=== PATIENT | male | born 1950 | race Caucasian/White ===

== ENCOUNTER 2019-12-18 00:18 | Outpatient (CLI) | payer MEDICARE, OTHER, SELFPAY ==
[2019-12-18 18:39] LABS: SARS-CoV-2 RNA PCR Negative
== END 2019-12-18 00:19 | disposition home or self-care (01) ==
LOC: ANHCOVIDDT 00:18
PROVIDERS: PCP Family Medicine; Visit Provider Internal Medicine Gastroenterology
DX: Z01.812 Encounter for preprocedural laboratory examination (principal); Z20.828 Contact with and (suspected) exposure to other viral communicable diseases
CPT/HCPCS: 87635; C9803; U0003

== ENCOUNTER 2019-12-20 01:07 | Day surgery (SDC) | payer MEDICARE, OTHER, SELFPAY ==
[2019-12-14 11:29] VITALS: BMI 24.5
[2019-12-20 06:36] VITALS: BP 113/75; PULSE 75; RESP 14; TEMP 36.6; O2SAT 99
[2019-12-20] MEDS: LACTATED RINGERS 1,000 ML 150 ML IV CONT (06:49)
--- NOTE | 2019-12-20 07:16 | WPDANESEPPF ---
Anes - Initial Pre Proc Eval Procedure: Operation Date: 12/20/19 07:30 Proposed Procedures p Screening Colonoscopy - Tanner Burgess DO Date/Time: 12/20/19 07:16 Surgeon: Tanner Burgess DO Pre Op Diagnosis: Neoplasm Screening Patient Data Age: 69 Gender: M Height: 5 ft 11 in Weight: 80.6 kg Last Vital Signs Temp 97.8 F 12/20/19 06:36 Pulse 75 12/20/19 06:36 Resp 14 12/20/19 06:36 BP 113/75 12/20/19 06:36 Pulse Ox 99 12/20/19 06:36 Allergies Allergy/AdvReac Type Severity Reaction Status Date / Time No Known Allergies Verified 12/20/19 06:35 Home Medications Medication Instructions Recorded Confirmed Type clopidogrel 75 mg tablet 75 mg PO DAILY #90 tablet 08/06/19 12/20/19 Rx fluticasone propionate 50 2 spray NASAL DAILY PRN 08/06/19 12/14/19 History mcg/actuation nasal spray,suspension simvastatin 40 mg tablet 40 mg PO QPM #90 tablet 08/06/19 12/14/19 Rx lisinopril 10 mg tablet 10 mg PO DAILY #90 tablet 10/15/19 12/20/19 Rx Cbd Oil 1 drp/day PO DAILY 12/14/19 12/14/19 History aspirin [Aspir-81] 81 mg PO DAILY 12/14/19 12/14/19 History dshhuvjz-rkr-tpqxtpj fumarate 9 mg PO DAILY 12/14/19 12/14/19 History [Multi Vitamin] psyllium husk [Metamucil] 0.4 g PO DAILY 12/14/19 12/14/19 History Patient hx anesthesia problems: none Family hx anesthesia problems: none PMFSH Past Medical History Medical History (Updated 08/18/19 @ 09:00 by Lily Beard MD) CVD (cardiovascular disease) History of prostate cancer HTN (hypertension) Hyperlipemia Stroke Surgical History Surgical History H/O prostatectomy History of hernia repair History of tonsillectomy Social History Social History Smoking status: Never smoker Second hand tobacco smoke exposure: No Alcohol intake: current Substance use: never Substance use type: does not use Gender identity (if verbalized by the patient): Male Anes - Eval Final PreProcedure Day of Procedure 12/20/19 07:16 Patient weight: overweight Heart: regular rate and rhythm Lungs: clear to auscultation Airway: Mallampati scale class II Neurological: alert and oriented Last oral intake: >/= 8 hours ASA classification: III Emergent: no Anesthetic plan: proceed Anesthesia type and monitoring: general GIVS and standard monitoring Informed Consent: The patient's anesthetic plan and its attendant risks and benefits were discussed with the patient/family/POA. Questions were solicited and answers provided to the satisfaction of the patient/family/POA.
--- NOTE | 2019-12-20 07:33 | PM.IMHP ---
H&P: HPI History of Present Illness Chief complaint: Neoplasm Screening Narrative: Enrique Del Rosario is a 69 year old male This is here for colonoscopy. He has had 3 quest the patient's primary. Impression: Positive stool in DNA test. History of colon polyps. HLD. HTN. Prostate cancer. TIA. recommendation: Colonoscopy. History: Very pleasant gentleman is here for screening and surveillance colonoscopy. He has a family history of colon cancer. He has a personal history of colon polyps. General: very pleasant patient in no acute distress. HEENT: Head was normocephalic sclerae is clear mouth without masses neck was supple. Heart: Rate rhythm regular without S3 or S4. Lungs: CTA. Abdomen: Soft with no guarding or rigidity. Bowel sounds were active. Neurologic: Cranial nerves 2 through 12 intact. No focal defects. No clonus. Musculoskeletal system: Revealed no joint tenderness or swelling no muscle atrophy. Extremities: Reveal no significant edema. Skin: Warm and dry with normal turgor. Mental status: intact. Patient is alert and oriented. Review of Systems Review of Systems: All systems reviewed & are unremarkable except as noted in HPI and below PMFSH Past Medical History Medical History (Updated 08/18/19 @ 09:00 by Lily Beard MD) CVD (cardiovascular disease) History of prostate cancer HTN (hypertension) Hyperlipemia Stroke Surgical History Surgical History H/O prostatectomy History of hernia repair History of tonsillectomy Social History Social History Smoking status: Never smoker Second hand tobacco smoke exposure: No Alcohol intake: current Substance use: never Substance use type: does not use Gender identity (if verbalized by the patient): Male Meds Home Medications and Allergies Home Medications Medication Instructions Recorded Confirmed Type clopidogrel 75 mg tablet 75 mg PO DAILY #90 tablet 08/06/19 12/20/19 Rx fluticasone propionate 50 2 spray NASAL DAILY PRN 08/06/19 12/14/19 History mcg/actuation nasal spray,suspension simvastatin 40 mg tablet 40 mg PO QPM #90 tablet 08/06/19 12/14/19 Rx lisinopril 10 mg tablet 10 mg PO DAILY #90 tablet 10/15/19 12/20/19 Rx Cbd Oil 1 drp/day PO DAILY 12/14/19 12/14/19 History aspirin [Aspir-81] 81 mg PO DAILY 12/14/19 12/14/19 History qohmcujp-gsv-jnapvcq fumarate 9 mg PO DAILY 12/14/19 12/14/19 History [Multi Vitamin] psyllium husk [Metamucil] 0.4 g PO DAILY 12/14/19 12/14/19 History Allergies Allergy/AdvReac Type Severity Reaction Status Date / Time No Known Allergies Verified 12/20/19 06:35 Vital Signs Vital Signs - 24 hr 12/20/19 06:36 Temperature 36.6 C Pulse Rate 75 Respiratory Rate 14 Blood Pressure 113/75 Pulse Oximetry 99
[2019-12-20 07:55] VITALS: BP 104/70; PULSE 64; RESP 16; O2SAT 98
[2019-12-20 08:05] VITALS: BP 99/66; PULSE 60; RESP 18; O2SAT 99
[2019-12-20 08:15] VITALS: BP 116/68; PULSE 64; RESP 20; O2SAT 99
== END 2019-12-20 08:30 | disposition home or self-care (01) ==
PROVIDERS: PCP Family Medicine; Visit Provider Internal Medicine Gastroenterology
PROC: 0DJD8ZZ Inspection of Lower Intestinal Tract, Via Natural or Artificial Opening Endoscopic (ICD-10-PCS; CPT 45378; principal; 2019-12-20 07:30)
DX: Z12.11 Encounter for screening for malignant neoplasm of colon (principal); D12.2 Benign neoplasm of ascending colon; K57.30 Diverticulosis of large intestine without perforation or abscess without bleeding; K64.8 Other hemorrhoids; Z80.0 Family history of malignant neoplasm of digestive organs; I10 Essential (primary) hypertension; I25.10 Atherosclerotic heart disease of native coronary artery without angina pectoris; E78.5 Hyperlipidemia, unspecified; Z86.73 Personal history of transient ischemic attack (TIA), and cerebral infarction without residual deficits; Z85.46 Personal history of malignant neoplasm of prostate; Z79.82 Long term (current) use of aspirin; Z79.02 Long term (current) use of antithrombotics/antiplatelets
CPT/HCPCS: 45385; 88305; J2704; J7120

== ENCOUNTER 2020-03-31 15:05 | Emergency (ER) | payer MEDICARE, OTHER, SELFPAY ==
--- NOTE | ~2020-03-31 | XR_ITS ---
EXAMINATION: XR knee LT min 4V DATE: 03/31/2020 15:56 INDICATION: Left knee injury and pain. TECHNIQUE: 4 views of left knee were obtained. COMPARISON: None. FINDINGS: Bone alignment is normal. There is an avulsion fracture of the superior pole of patella. Th ere is mild tricompartmental osteoarthritis. There is a moderate-sized knee joint effusion. IMPRESSION: 1. Avulsion fracture of the superior pole of patella. 2. Mild left knee osteoarthritis. 3. Moderate-sized left knee joint effusion. Reviewed, dictated and finalized at location A.
--- NOTE | ~2020-03-31 | CT_ITS ---
EXAMINATION: CT brain wo con DATE: 03/31/2020 18:39 INDICATION: Head injury. TECHNIQUE: Computed tomography (CT) of the head was performed without intravenous contrast. The mA wa s adjusted according to patient size. Iterative reconstruction technique was employed. The dose-lengt h product was 605.33 mGy-cm. COMPARISON: Head CT 05/06/2015 FINDINGS: There is no intracranial hemorrhage, acute infarction, or abnormal intracranial mass lesion . There is an old lacunar infarct in left thalamus. The ventricles are normal in size. There is mild mucosal thickening in the paranasal sinuses. The orbits are normal. The mastoid air cells are normal. IMPRESSION: 1. Old lacunar infarct in left thalamus. Reviewed, dictated and finalized at location A.
[2020-03-31 15:16] VITALS: BP 126/62; PULSE 67; RESP 20; TEMP 36.8; O2SAT 98
[2020-03-31 17:35] VITALS: BP 154/89; PULSE 82; RESP 18; O2SAT 100
--- NOTE | 2020-03-31 18:24 | ED.GENADULT ---
HPI - General Adult General Chief complaint: Extremity Injury, Lower Stated complaint: fall/knee injury Time Seen by Provider: 03/31/20 17:57 Source: patient History of Present Illness HPI narrative: Patient is a 69 y/o male complaining knee pain after a fall. He states that he fell off a ladder about 3-4 hours ago. He fell from a height of approximately 3 feet. He states the his pain is mild with no radiation. Pain is worse with movement. He is not able to fully extend his knee. He is not able to ambulate. He does not think he hit his head, but does have a small abrasion to his head. He has no neck pain, back pain, chest pain or abdominal pain. Related Data Home Medications Medication Instructions Recorded Confirmed fluticasone propionate 50 2 spray NASAL DAILY PRN 08/06/19 12/14/19 mcg/actuation nasal spray,suspension Cbd Oil 1 drp/day PO DAILY 12/14/19 12/14/19 aspirin [Aspir-81] 81 mg PO DAILY 12/14/19 12/14/19 qvvaipfa-nmr-lspztwc fumarate 9 mg PO DAILY 12/14/19 12/14/19 [Multi Vitamin] psyllium husk [Metamucil] 0.4 g PO DAILY 12/14/19 12/14/19 Allergies Allergy/AdvReac Type Severity Reaction Status Date / Time No Known Allergies Verified 12/20/19 06:35 Review of Systems Constitutional: Constitutional: Denies chills, Denies fever(s), Denies headache(s) and Denies weakness Eyes: Eyes: Denies blurry vision ENT: Denies headache(s) and Denies neck pain Cardiovascular: Cardiovascular: Denies chest pain and Denies dyspnea Respiratory: Respiratory: Denies cough and Denies dyspnea Gastrointestinal: Gastrointestinal: Denies abdominal pain, Denies diarrhea, Denies nausea and Denies vomiting Genitourinary: Genitourinary: Denies hematuria and Denies dysuria Musculoskeletal: Musculoskeletal: Denies back pain, Reports arthralgias (left knee pain) and Denies neck pain Neurologic: Denies headache(s) and Denies weakness PMF Past Medical History Medical History CVD (cardiovascular disease) History of prostate cancer HTN (hypertension) Hyperlipemia Stroke Surgical History Surgical History H/O prostatectomy History of hernia repair History of tonsillectomy Social History Social History Smoking status: Never smoker Second hand tobacco smoke exposure: No Alcohol intake: current Substance use: never Substance use type: does not use Gender identity (if verbalized by the patient): Male Exam Const: General: no acute distress and well developed Orientation/consciousness: oriented to person, oriented to place, oriented to time and patient oriented x3 HENMT: Head: normocephalic Ears: external ears normal General nose exam: Normal external nose present Eyes: General: appearance normal, both eyes and all related structures Conjunctivae: conjunctivae normal Neck: Neck: normal visual inspection and full ROM Chest: Chest palpation & inspection: normal inspection of the chest and no tenderness Resp: Effort & Inspection: normal respiratory effort Auscultation: clear to auscultation bilaterally Cardio: Rate: regular rate Rhythm: regular rhythm GI: GI Palp: No abdominal tenderness and Yes Soft to palpation Skin: General skin exam: normal color and turgor normal Neuro: General: oriented to person, oriented to place, oriented to time and patient oriented x3 Cognition (Neuro): normal cognition Extrem: General: normal to inspection, full ROM and no pedal edema Left lower extremity: knee Details: abnormal ROM (unable to fully extend left knee), knee ligament exam abnormal and other (palpable defect above patella consistent with quad tendon rupture) Psych: Appearance: grossly normal Mental Status: mental status grossly normal Affect: normal affect Course Consultations Consultation #1: Discussed with Dr. De Souza, who recommends knee i
[2020-03-31] MEDS: TETANUS,DIPHTHERIA,AC PERTUSSIS ADULT (0.5 ML) BOOSTRIX IM (18:47)
== END 2020-03-31 19:32 | disposition home or self-care (01) ==
PROVIDERS: Emergency Provider Emergency Medicine; PCP Family Medicine
DX: S76.112A Strain of left quadriceps muscle, fascia and tendon, initial encounter (principal); W11.XXXA Fall on and from ladder, initial encounter; S00.91XA Abrasion of unspecified part of head, initial encounter; Z23 Encounter for immunization; Z79.82 Long term (current) use of aspirin; I10 Essential (primary) hypertension; E78.5 Hyperlipidemia, unspecified; Z86.73 Personal history of transient ischemic attack (TIA), and cerebral infarction without residual deficits; Z85.46 Personal history of malignant neoplasm of prostate; Z90.79 Acquired absence of other genital organ(s)
CPT/HCPCS: 70450; 73564; 90471; 90715; 99284

== ENCOUNTER 2020-04-08 00:25 | Outpatient (CLI) | payer MEDICARE, OTHER, SELFPAY ==
[2020-04-08 20:04] LABS: SARS-CoV-2 RNA PCR Negative
== END 2020-04-08 00:26 | disposition home or self-care (01) ==
LOC: ANHCOVIDDT 00:25
PROVIDERS: PCP Family Medicine; Visit Provider Orthopaedic Surgery
DX: Z01.812 Encounter for preprocedural laboratory examination (principal); Z20.828 Contact with and (suspected) exposure to other viral communicable diseases
CPT/HCPCS: 87635; C9803; U0003

== ENCOUNTER 2020-04-08 07:45 | Outpatient (CLI) | payer MEDICARE, OTHER, SELFPAY ==
--- NOTE | 2020-04-08 07:48 | ECG_ITS ---
Measurements Intervals [place] Rate: 77 P: -11 UT: 157 QRS: 6 QRSD: 86 T: 19 QT: 353 QTc: 401 Interpretive Statements SINUS RHYTHM DELAYED PRECORDIAL R/S TRANSITION BASELINE ARTIFACT- I, II, AVR, AVL, V4 BORDERLINE ECG Electronically Signed On 04-08-2020 8:04:55 CDT by Christophe Leggett D.O.
== END 2020-04-08 07:46 | disposition home or self-care (01) ==
LOC: ANHSURGERY 07:48
PROVIDERS: PCP Family Medicine; Visit Provider Orthopaedic Surgery
DX: Z01.810 Encounter for preprocedural cardiovascular examination (principal); I10 Essential (primary) hypertension; R94.31 Abnormal electrocardiogram [ECG] [EKG]
CPT/HCPCS: 87635; 93005; C9803; U0003

== ENCOUNTER 2020-04-09 06:38 | Outpatient (CLI) | payer MEDICARE, OTHER, SELFPAY ==
--- NOTE | ~2020-04-09 | MR_ITS ---
EXAMINATION: MR knee LT wo con DATE: 04/09/2020 08:10 INDICATION: Left knee pain. TECHNIQUE: Magnetic resonance imaging (MRI) of the left knee was performed without intravenous contra st. Sequences included axial PD-weighted FS FSE, coronal PD-weighted FSE and PD-weighted FS FSE, sagi ttal PD-weighted FSE, and sagittal T2-weighted FS FSE. COMPARISON: Left knee radiographs 03/31/2020 FINDINGS: Medial compartment: Medial meniscus is normal. There is cartilage surface irregularity of tibial condyle. There is deep p artial thickness cartilage loss of femoral condyle involving the central articular surface. There are tiny marginal osteophytes. Lateral compartment: Lateral meniscus is normal. There is shallow partial-thickness cartilage loss of tibial condyle, wors t at the central articular surface. There is cartilage surface irregularity of femoral condyle. There are tiny marginal osteophytes. Patellofemoral compartment: There is deep partial thickness cartilage loss of patellar medial facet and median ridge with mild castaneda bchondral edema-like marrow signal intensity. There is shallow partial-thickness [employer] loss of cent ral and medial trochlea. Ligaments and tendons: The anterior and posterior cruciate ligaments are normal. The medial collateral ligament is normal. T here are changes of prior sprain of fibular collateral ligament characterized by thickening and incre ased signal intensity proximally. There is a complete tear of quadriceps tendon distally. Fluid: There is a small knee joint effusion. There is moderate prepatellar and superficial infrapatellar bur sitis. There is trace fluid in a Beard's cyst. There is subcutaneous edema about the knee. IMPRESSION: 1. Complete tear of distal quadriceps tendon. 2. Moderate chondrosis of medial and patellofemoral compartments and mild chondrosis of lateral juan rtment. 3. Small knee joint effusion in continuity with moderate prepatellar and superficial infrapatellar bu rsitis. Reviewed, dictated and finalized at location A. IMPRESSION: 1. Complete tear of distal quadriceps tendon. 2. Moderate chondrosis of medial and patellofemoral compartments and mild chond rosis of lateral compartment. 3. Small knee joint effusion in continuity with moderate prepatellar and superf icial infrapatellar bursitis.
== END 2020-04-09 06:39 | disposition home or self-care (01) ==
PROVIDERS: PCP Family Medicine; Visit Provider Nurse Practitioner Family
DX: M25.462 Effusion, left knee (principal); S76.112A Strain of left quadriceps muscle, fascia and tendon, initial encounter; X58.XXXA Exposure to other specified factors, initial encounter
CPT/HCPCS: 73721

== ENCOUNTER 2020-04-10 02:08 | Day surgery (SDC) | payer MEDICARE, OTHER, SELFPAY ==
[2020-04-04 10:17] VITALS: BMI 25.1
[2020-04-10] VITALS (8 sets, daily range): BP systolic 121–139; BP diastolic 68–85; PULSE 52–77; RESP 12–18; TEMP 36.1; O2SAT 97–100
--- NOTE | ~2020-04-10 | XR_ITS ---
EXAMINATION: XR surgery orthopedic EXAM DATE: 04/10/2020 11:18 INDICATION: Quadriceps repair. TECHNIQUE: Fluoroscopy used during XR surgery orthopedic performed by Dr. Remington Parks MD. The DAP for this procedure was 0.007 mGym2. No prior FINDINGS: Surgical defect superior to the patella. Some orthopedic fixation pins. Correlate with pr ocedure note. IMPRESSION: Fluoroscopy used during quadriceps tendon repair. Reviewed, dictated and finalized at location B.
--- NOTE | 2020-04-10 06:57 | WPDHPUPDATE1 ---
History and Physical Update Update Date/Time: 04/10/20 06:57 History and Physical has been reviewed, including an updated exam of the patient. There are NO changes in the patient's condition. Covid test negative. MRI shows full thickness quad tendon tear. Risks, benefits, and alternatives have been discussed and questions answered. Patient agrees to proceed with procedure.
[2020-04-10] MEDS: ACETAMINOPHEN 500 MG TABLET 1000 MG PO (08:52)
[2020-04-10] MEDS: KETOROLAC 15 MG/ML VIAL (*BKC) IV PUSH (09:25)
[2020-04-10] MEDS: LACTATED RINGERS 1,000 ML 30 ML IV CONT ×2 (09:27→11:41)
--- NOTE | 2020-04-10 09:52 | P.PNAN_ITS ---
Anes - Initial Pre Proc Eval Procedure: Operation Date: 04/10/20 10:00 Proposed Procedures p Left Quadriceps Repair - Remington Parks MD Date/Time: 04/10/20 09:52 Surgeon: Remington Parks MD Pre Op Diagnosis: Left Quadriceps Rupture Patient Data Age: 69 Gender: M Height: 5 ft 11 in Weight: 81.6 kg Last Vital Signs Temp 36.1 C L 04/10/20 08:57 Pulse 77 04/10/20 08:57 Resp 16 04/10/20 08:57 BP 125/69 04/10/20 08:57 Pulse Ox 99 04/10/20 08:57 Allergies Allergy/AdvReac Type Severity Reaction Status Date / Time No Known Allergies Verified 04/04/20 10:13 Home Medications Medication Instructions Recorded Confirmed Type clopidogrel 75 mg tablet 75 mg PO DAILY #90 tablet 08/06/19 04/10/20 Rx simvastatin 40 mg tablet 40 mg PO QPM #90 tablet 08/06/19 04/10/20 Rx hydrocodone-acetaminophen [[place]] 1 tablet PO Q6H PRN #15 tablet 03/31/20 04/10/20 Rx lisinopril 10 mg PO HS 04/04/20 04/10/20 History lorazepam 0.5 mg tablet 0.5 mg PO ONCE #1 tablet 04/07/20 04/10/20 Rx aspirin [Adult Low Dose Aspirin] 81 mg PO DAILY 04/10/20 04/10/20 History vwhchaolvlem-qra-rmgo-FA-vit K 1 tablet PO DAILY 04/10/20 04/10/20 History [Adults Multivitamin] Patient hx anesthesia problems: none Family hx anesthesia problems: none PMFSH Past Medical History Medical History CVD (cardiovascular disease) History of prostate cancer HTN (hypertension) Hyperlipemia Rupture quadriceps tendon (03/31/20) Seasonal allergies Stroke Surgical History Surgical History H/O prostatectomy History of hernia repair History of tonsillectomy Social History Social History Smoking status: Never smoker Second hand tobacco smoke exposure: No Alcohol intake: current Drinks per week: 2 Substance use: never Substance use type: does not use Living arrangements: with family Gender identity (if verbalized by the patient): Male Spiritual care concerns: No Anes - Eval Final PreProcedure Day of Procedure 04/10/20 09:52 Patient weight: normal Heart: regular rate and rhythm Lungs: clear to auscultation Airway: Mallampati scale class II Neurological: alert and oriented Last oral intake: >/= 8 hours ASA classification: III Emergent: no Anesthetic plan: proceed Anesthesia type and monitoring: general LMA and standard monitoring Informed Consent: The patient's anesthetic plan and its attendant risks and benefits were discussed with the patient/family/POA. Questions were solicited and answers provided to the satisfaction of the patient/family/POA.
[2020-04-10] MEDS: ceFAZolin 2 GM/D5W 50 ML 2 GM/50 ML BAG IVPB (10:08)
--- NOTE | 2020-04-10 11:49 | PM.PROC ---
Procedure Note - Detailed Date of procedure: 04/10/20 Pre-op diagnosis: Left Quadriceps Rupture Post-op diagnosis: same Procedure performed: Repair left quadriceps tendon Description of procedure: Indications: Patient is a 69-year-old gentleman who sustained a complete tear of the left quadriceps tendon, confirmed by MRI. He desires operative treatment. What was done: Patient identified in the preoperative holding. Informed consent given. Operative extremity marked. Patient received intravenous antibiotics. Patient brought to the operating room where underwent general anesthetic by anesthesia team. Positioned supine on operating room table. Time-out performed confirming the patient, site of the surgery and the plan. Left knee prepped and draped usual sterile surgical fashion using a ChloraPrep skin solution. Knee exsanguinated and a thigh tourniquet inflated to 250 mmHg. Standard anterior midline longitudinal incision made with 15 blade knife. Hemostasis controlled electrocautery. Incision was centered over the proximal patella. Fascia was incised line skin incision. A large seroma was noted and have complete defect in the quadriceps tendon. The knee was suctioned out and irrigated as well and Suctioned again. Quadricep tendon was then repaired. Arthrex fiber tape suture was used in a locking Krackow type stitch. Four strands of suture were utilized and brought out the distal end of the quadriceps. Bilateral was then placed in the proximal patella. The drill holes were verified with image intensification. The FiberTape was then passed through the patella and pulled out the distal end. With correct tension the sutures and secured with 4.5 mm SwiveLock anchors. Two of these were placed. Good fixation was noted. The SwiveLock anchors had 2. FiberWire attached and this was used to augment the quadriceps repair. 0 Vicryl interrupted suture was then used to repair the medial and lateral retinaculum. Wound was thoroughly irrigated antibiotic solution. The capsule was then repaired with 0 Vicryl running suture. Subcutaneous tissue was repaired with 2 Vicryl interrupted suture and skin was repaired with chauncey. Sterile dressing applied. The patient was then woken from anesthesia, extubated and taken to the recovery room in stable condition. All sponge, needle, instrument counts were correct at the end of the case. Implants: Arthrex 4.5 mm SwiveLock anchor x2 Anesthesia: GLMA Surgeon: Remington Parks MD Rn Clinical Documentation Specialist: 1st clinical trial assistant Estimated blood loss (mL): 10 Tourniquet time (min): 67 Drains: No Packing: No Pathology: none sent Complications: None Condition: stable Disposition: PACU
== END 2020-04-10 13:41 | disposition home or self-care (01) ==
PROVIDERS: PCP Family Medicine; Visit Provider Orthopaedic Surgery
PROC: (CPT 27385; principal; 2020-04-10 10:00)
DX: S76.112A Strain of left quadriceps muscle, fascia and tendon, initial encounter (principal); W11.XXXA Fall on and from ladder, initial encounter; Z79.02 Long term (current) use of antithrombotics/antiplatelets; Z79.82 Long term (current) use of aspirin; I10 Essential (primary) hypertension; E78.5 Hyperlipidemia, unspecified; I25.10 Atherosclerotic heart disease of native coronary artery without angina pectoris; Z86.73 Personal history of transient ischemic attack (TIA), and cerebral infarction without residual deficits; Z85.46 Personal history of malignant neoplasm of prostate
CPT/HCPCS: 27385; A9270; J0690; J1100; J1885; J2405; J2704; J3010; J7120

== ENCOUNTER 2022-03-03 09:54 | Outpatient (CLI) | payer MEDICARE, OTHER, SELFPAY ==
[2022-03-03 18:42] LABS: Alanine Aminotransferase 35 U/L (6-50); Albumin Level 4.3 g/dL (3.5-5.1); Alkaline Phosphatase 57 U/L (38-126); Anion Gap 8 mmol/L (8-16); Bilirubin,Total 0.4 mg/dL (0.2-1.3); Blood Urea Nitrogen 16 mg/dL (9-20); Calcium 8.7 mg/dL (8.4-10.2); Carbon Dioxide 31 mmol/L (22-30); Chloride 100 mmol/L (98-107); Estimated Glomerular Filt Rate > 60; Glucose 83 mg/dL (65-110); Sodium 139 mmol/L (137-145)
[2022-03-04 14:01] LABS: Aspartate Amino Transferase 64 U/L (17-59)
== END 2022-03-03 09:55 | disposition home or self-care (01) ==
LOC: ANHGOSHLAB 09:57
PROVIDERS: PCP Family Medicine; Visit Provider Family Medicine
DX: E78.2 Mixed hyperlipidemia (principal); Z51.81 Encounter for therapeutic drug level monitoring; Z79.899 Other long term (current) drug therapy; I10 Essential (primary) hypertension
CPT/HCPCS: 36415; 80053

== ENCOUNTER 2022-08-30 09:09 | Outpatient (CLI) | payer MEDICARE, OTHER, SELFPAY ==
[2022-08-30 12:36] LABS: Basophils Absolute Auto 0.1 K/mm3 (0.0-0.1); Basophils Percent Auto 0.6 % (0.2-1.2); Eosinophils Absolute Auto 0.3 K/mm3 (0-0.3); Eosinophils Percent Auto 2.5 % (0-4.4); Hematocrit 45.7 % (42.0-52.0); Hemoglobin 15.4 g/dL (14.0-18.0); Immature Granulocyte Absolute 0.09 K/mm3 (0.00-0.031); Immature Granulocyte Percent A 0.8 % (0-0.5); Mean Corpuscular HGB Conc 33.7 g/dl (32-36); Mean Corpuscular Hemoglobin 30.6 pg (26-34); Mean Corpuscular Volume 90.9 fl (80-100); Mean Platelet Volume 9.4 fl (7.4-10.4); Monocytes Absolute Auto 0.7 K/mm3 (0.1-0.6); Monocytes Percent Auto 6.4 % (2.6-8.5); Neutrophils Absolute Auto 7.7 K/mm3 (1.3-6.7); Neutrophils Percent Auto 69.7 % (45.5-73.1); Platelet Count Result 390 k/mm3 (150-375); Red Blood Count 5.03 M/mm3 (4.6-6.20); Red Cell Distribution Width 12.7 % (11.5-14.5)
[2022-08-30 12:43] LABS: Alanine Aminotransferase 32 U/L (6-50); Albumin Level 4.2 g/dL (3.5-5.1); Alkaline Phosphatase 66 U/L (38-126); Anion Gap 7 mmol/L (8-16); Aspartate Amino Transferase 61 U/L (17-59); Bilirubin,Total 0.7 mg/dL (0.2-1.3); Blood Urea Nitrogen 16 mg/dL (9-20); Calcium 9.1 mg/dL (8.4-10.2); Carbon Dioxide 32 mmol/L (22-30); Chloride 100 mmol/L (98-107); Cholesterol 129 mg/dL (0-200); Estimated Glomerular Filt Rate > 60; Glucose 92 mg/dL (65-110); HDL Direct 30 mg/dL; Potassium 4.2 mmol/L (3.4-5.0); Sodium 139 mmol/L (137-145); Triglycerides 76 mg/dL (<150)
[2022-08-30 12:54] LABS: LDL Cholesterol Direct 65 mg/dL
[2022-08-30 13:08] LABS: Vitamin D 25 Hydroxy 52.6 ng/mL
[2022-08-30 13:12] LABS: Prostate Specific Antigen 0.5 ng/mL (< OR = 4.0)
== END 2022-08-30 09:10 | disposition home or self-care (01) ==
LOC: ANHGOSHLAB 09:10
PROVIDERS: PCP Family Medicine; Visit Provider Family Medicine
DX: E53.8 Deficiency of other specified B group vitamins (principal); I10 Essential (primary) hypertension; E78.5 Hyperlipidemia, unspecified; E55.9 Vitamin D deficiency, unspecified; Z12.5 Encounter for screening for malignant neoplasm of prostate
CPT/HCPCS: 36415; 80053; 80061; 82306; 82607; 84153; 84443; 85025; G0103

== ENCOUNTER 2023-03-01 09:26 | Outpatient (CLI) | payer MEDICARE, OTHER, SELFPAY ==
[2023-03-01 19:50] LABS: Alanine Aminotransferase 28 U/L (6-50); Albumin Level 4.3 g/dL (3.5-5.1); Alkaline Phosphatase 62 U/L (38-126); Anion Gap 3 mmol/L (8-16); Aspartate Amino Transferase 96 U/L (17-59); Bilirubin,Total 0.8 mg/dL (0.2-1.3); Blood Urea Nitrogen 15 mg/dL (9-20); Calcium 9.2 mg/dL (8.4-10.2); Carbon Dioxide 31 mmol/L (22-30); Chloride 101 mmol/L (98-107); Estimated Glomerular Filt Rate > 60; Glucose 74 mg/dL (65-110); Potassium 4.4 mmol/L (3.4-5.0); Sodium 135 mmol/L (137-145)
== END 2023-03-01 09:27 | disposition home or self-care (01) ==
LOC: ANHGOSHLAB 09:28
PROVIDERS: PCP Family Medicine; Visit Provider Family Medicine
DX: E78.5 Hyperlipidemia, unspecified (principal); I10 Essential (primary) hypertension; Z79.899 Other long term (current) drug therapy
CPT/HCPCS: 36415; 80053

== ENCOUNTER 2023-08-26 08:10 | Outpatient (CLI) | payer MEDICARE, OTHER, SELFPAY ==
[2023-08-26 12:13] LABS: Basophils Absolute Auto 0.1 K/mm3 (0.0-0.1); Basophils Percent Auto 0.7 % (0.2-1.2); Eosinophils Absolute Auto 0.3 K/mm3 (0-0.3); Eosinophils Percent Auto 4.1 % (0-4.4); Hematocrit 48.3 % (42.0-52.0); Hemoglobin 15.4 g/dL (14.0-18.0); Immature Granulocyte Absolute 0.03 K/mm3 (0.00-0.031); Immature Granulocyte Percent A 0.4 % (0-0.5); Lymphocytes Absolute Auto 2.37 K/mm3 (0.9-3.2); Lymphocytes Percent Auto 28.3 % (18.3-44.2); Mean Corpuscular HGB Conc 31.9 g/dl (32-36); Mean Corpuscular Hemoglobin 29.5 pg (26-34); Mean Corpuscular Volume 92.5 fl (80-100); Mean Platelet Volume 9.7 fl (7.4-10.4); Monocytes Absolute Auto 0.6 K/mm3 (0.1-0.6); Monocytes Percent Auto 6.7 % (2.6-8.5); Neutrophils Percent Auto 59.8 % (45.5-73.1); Platelet Count Result 362 k/mm3 (150-375); Red Blood Count 5.22 M/mm3 (4.6-6.20); Red Cell Distribution Width 12.9 % (11.5-14.5); White Blood Count 8.4 K/mm3 (4.5-10.0)
[2023-08-26 12:17] LABS: Alanine Aminotransferase 31 U/L (6-50); Albumin Level 4.2 g/dL (3.5-5.1); Alkaline Phosphatase 63 U/L (38-126); Anion Gap 5 mmol/L (8-16); Aspartate Amino Transferase 105 U/L (17-59); Bilirubin,Total 0.8 mg/dL (0.2-1.3); Blood Urea Nitrogen 17 mg/dL (9-20); Calcium 9.3 mg/dL (8.4-10.2); Carbon Dioxide 31 mmol/L (22-30); Chloride 104 mmol/L (98-107); Cholesterol 136 mg/dL (0-200); Estimated Glomerular Filt Rate > 60; Glucose 85 mg/dL (65-110); HDL Direct 41 mg/dL; Potassium 4.7 mmol/L (3.4-5.0); Sodium 140 mmol/L (137-145); Triglycerides 62 mg/dL (<150)
[2023-08-26 12:30] LABS: LDL Cholesterol Direct 75 mg/dL
[2023-08-26 12:47] LABS: Prostate Specific Antigen 0.6 ng/mL (< OR = 4.0)
[2023-08-26 13:15] LABS: Vitamin D 25 Hydroxy 35.4 ng/mL
== END 2023-08-26 08:11 | disposition home or self-care (01) ==
PROVIDERS: PCP Family Medicine; Visit Provider Family Medicine
DX: S76.112D Strain of left quadriceps muscle, fascia and tendon, subsequent encounter (principal); X58.XXXD Exposure to other specified factors, subsequent encounter; E53.8 Deficiency of other specified B group vitamins; E55.9 Vitamin D deficiency, unspecified; Z12.5 Encounter for screening for malignant neoplasm of prostate; E78.5 Hyperlipidemia, unspecified; I10 Essential (primary) hypertension
CPT/HCPCS: 36415; 80053; 80061; 82306; 82607; 84153; 84443; 85025; G0103

== ENCOUNTER → 2023-09-05 07:55 | Outpatient (CLI) | payer MEDICARE, OTHER, SELFPAY ==
--- NOTE | ~2023-09-05 | US_ITS ---
EXAMINATION: US right upper quadrant DATE: 09/05/2023 08:12 INDICATION: Abnormal liver function tests TECHNIQUE: Multiple grayscale and Doppler ultrasound images of the abdomen were obtained. COMPARISON: None available FINDINGS: The head and body of the pancreas are normal. The pancreatic tail is obscured by bowel gas. There is a 3.2 cm cyst of the left hepatic lobe. The liver is otherwise normal with normal echogenic ity and echotexture. No surface nodularity. Normal hepatopetal flow in the main portal vein. The gall bladder is normal with no abnormal wall thickening, pericholecystic fluid or stones. The normal commo n bile duct measures 6 mm. There was no sonographic Hernandez sign. IMPRESSION: 1. No sonographic correlate for the patient's symptoms. Reviewed, dictated and finalized at location B. [employer]
== END ==
PROVIDERS: PCP Family Medicine; Visit Provider Family Medicine
DX: R74.8 Abnormal levels of other serum enzymes (principal)
CPT/HCPCS: 76705

== ENCOUNTER 2024-02-22 08:10 | Outpatient (CLI) | payer MEDICARE, OTHER, SELFPAY ==
[2024-02-22 13:21] LABS: Alanine Aminotransferase 28 U/L (6-50); Albumin Level 4.4 g/dL (3.5-5.1); Alkaline Phosphatase 57 U/L (38-126); Anion Gap 9 mmol/L (4-12); Aspartate Amino Transferase 127 U/L (17-59); Bilirubin,Total 0.8 mg/dL (0.2-1.3); Blood Urea Nitrogen 19 mg/dL (9-20); Calcium 9.2 mg/dL (8.4-10.2); Carbon Dioxide 29 mmol/L (22-30); Chloride 100 mmol/L (98-107); Estimated Glomerular Filt Rate > 60; Glucose 80 mg/dL (65-110); Potassium 4.5 mmol/L (3.4-5.0); Sodium 138 mmol/L (137-145)
[2024-02-22 15:29] LABS: Hepatitis B Surface Antigen Negative (Negative)
[2024-02-22 15:34] LABS: HAV RESULT Negative (Negative); Hepatitis B Core IgM Result Negative (Negative)
[2024-02-22 15:46] LABS: Hepatitis C Virus Antibody Negative (Negative)
== END 2024-02-22 08:11 | disposition home or self-care (01) ==
LOC: ANHGOSHLAB 08:12
PROVIDERS: PCP Family Medicine; Visit Provider Family Medicine
DX: E78.5 Hyperlipidemia, unspecified (principal); I10 Essential (primary) hypertension; R74.01 Elevation of levels of liver transaminase levels; R74.8 Abnormal levels of other serum enzymes
CPT/HCPCS: 36415; 80053; 80074

== ENCOUNTER 2024-02-27 13:40 | Outpatient (CLI) | payer MEDICARE, OTHER, SELFPAY ==
[2024-02-27 14:34] LABS: Basophils Absolute Auto 0.1 K/mm3 (0.0-0.1); Basophils Percent Auto 0.5 % (0.2-1.2); Eosinophils Absolute Auto 0.2 K/mm3 (0-0.3); Eosinophils Percent Auto 1.6 % (0-4.4); Hematocrit 44.2 % (42.0-52.0); Hemoglobin 15.2 g/dL (14.0-18.0); Immature Granulocyte Absolute 0.04 K/mm3 (0.00-0.031); Immature Granulocyte Percent A 0.4 % (0-0.5); Lymphocytes Absolute Auto 2.34 K/mm3 (0.9-3.2); Lymphocytes Percent Auto 23.3 % (18.3-44.2); Mean Corpuscular HGB Conc 34.4 g/dl (32-36); Mean Corpuscular Hemoglobin 31.3 pg (26-34); Mean Corpuscular Volume 91.1 fl (80-100); Mean Platelet Volume 9.3 fl (7.4-10.4); Monocytes Absolute Auto 0.6 K/mm3 (0.1-0.6); Monocytes Percent Auto 6.2 % (2.6-8.5); Neutrophils Absolute Auto 6.8 K/mm3 (1.3-6.7); Platelet Count Result 333 k/mm3 (150-375); Red Blood Count 4.85 M/mm3 (4.6-6.20); Red Cell Distribution Width 12.7 % (11.5-14.5)
[2024-02-27 14:57] LABS: Prothrombin Time 13.7 Seconds (11.1-14.7)
[2024-02-27 19:45] LABS: Iron 94 ug/dL (49-181)
[2024-02-27 19:54] LABS: Percent Iron Saturation 26 % (20-50)
[2024-02-29 10:23] LABS: Ceruloplasmin 25 mg/dL (14-30)
[2024-03-01 00:58] LABS: GGT 16 U/L (3-70)
[2024-03-04 12:09] LABS: Actin Antibody (IgG) <20 U (<20)
[2024-03-05 09:18] LABS: LKM 1 Antibody <=20.0 U (<=20.0)
[2024-03-06 15:59] LABS: ALT 25 U/L (9-46); Alpha-2-Macroglobulin 262 mg/dL (106-279); Apolipoprotein A1 147 mg/dL (94-176); Fibrosis Score 0.34; Fibrosis Stage F1-F2; GGT 17 U/L (3-70); Haptoglobin 160 mg/dL (43-212); Necroinflammat Act Grade A0; Reference ID 5064212; Total Bilirubin 0.4 mg/dL (0.2-1.2)
[2024-03-07 10:43] LABS: Mitochondrial (M2) Ab (IgG) <20.0 U
== END 2024-02-27 13:41 | disposition home or self-care (01) ==
LOC: ANHGOSHLAB 13:42
PROVIDERS: PCP Family Medicine; Visit Provider Nurse Practitioner Family
DX: R74.01 Elevation of levels of liver transaminase levels (principal); E78.2 Mixed hyperlipidemia; Z86.73 Personal history of transient ischemic attack (TIA), and cerebral infarction without residual deficits
CPT/HCPCS: 36415; 81596; 82104; 82105; 82390; 82728; 82977; 83520; 83540; 83550; 85025; 85610; 86038; 86039; 86364; 86376

== ENCOUNTER 2024-06-20 09:51 | Outpatient (CLI) | payer MEDICARE, OTHER, SELFPAY ==
--- NOTE | 2024-06-20 10:01 | ECG_ITS ---
Test Date: 2024-06-20 10:16:08 Measurements Intervals [place] Rate: 77 P: 5 [place]: 169 QRS: 8 QRSD: 89 T: 15 QT: 347 QTc: 394 Interpretive Statements SINUS RHYTHM NORMAL ECG Electronically Signed On 06-20-2024 11:01:41 SUPERVISOR WET ROOM by Marcelo Sanchez M.D.
[2024-06-20 11:04] LABS: Basophils Percent Auto 0.4 % (0.2-1.2); Eosinophils Absolute Auto 0.2 K/mm3 (0-0.3); Eosinophils Percent Auto 2.2 % (0-4.4); Hematocrit 43.9 % (42.0-52.0); Hemoglobin 14.5 g/dL (14.0-18.0); Immature Granulocyte Absolute 0.03 K/mm3 (0.00-0.031); Immature Granulocyte Percent A 0.4 % (0-0.5); Lymphocytes Absolute Auto 1.71 K/mm3 (0.9-3.2); Mean Corpuscular Hemoglobin 30.1 pg (26-34); Mean Corpuscular Volume 91.1 fl (80-100); Mean Platelet Volume 9.6 fl (7.4-10.4); Monocytes Absolute Auto 0.4 K/mm3 (0.1-0.6); Monocytes Percent Auto 6.1 % (2.6-8.5); Neutrophils Absolute Auto 4.5 K/mm3 (1.3-6.7); Neutrophils Percent Auto 65.9 % (45.5-73.1); Platelet Count Result 300 k/mm3 (150-375); Red Blood Count 4.82 M/mm3 (4.6-6.20); Red Cell Distribution Width 12.4 % (11.5-14.5); White Blood Count 6.9 K/mm3 (4.5-10.0)
[2024-06-20 11:16] LABS: Anion Gap 3 mmol/L (4-12); Blood Urea Nitrogen 20 mg/dL (9-20); Carbon Dioxide 32 mmol/L (22-30); Chloride 103 mmol/L (98-107); Estimated Glomerular Filt Rate > 60; Glucose 101 mg/dL (65-110); Potassium 3.9 mmol/L (3.4-5.0); Sodium 138 mmol/L (137-145)
== END 2024-06-20 09:52 | disposition home or self-care (01) ==
LOC: ANHSURGERY 09:55
PROVIDERS: PCP Family Medicine; Visit Provider Surgery
DX: E78.5 Hyperlipidemia, unspecified (principal); I10 Essential (primary) hypertension; K40.90 Unilateral inguinal hernia, without obstruction or gangrene, not specified as recurrent
CPT/HCPCS: 36415; 80048; 85025; 93005

== ENCOUNTER 2024-06-27 01:27 | Day surgery (SDC) | payer MEDICARE, OTHER, SELFPAY ==
[2024-06-18 10:50] VITALS: BMI 25.1
--- NOTE | 2024-06-18 11:02 | PC.NURSE ---
Report to the Outpatient Waiting Room, entrance under the green pavilion located off [facility], at time _11:00am on date _06/27/24 . Planned Procedure Time: 1:00pm .? Time changes happen often and if your time is changed the preop area will call you the afternoon before. - You and your visitor will be asked to self-screen and do not enter if you have any COVID symptoms. Please call surgeon if you need to reschedule. - A mask is optional within the hospital at this time. Patients may have clear liquids (water, carbonated beverages, clear teas, apple juice) until 3 hours prior to surgery with a maximum of 20 ounces. - No food from midnight until time of surgery and no smoking. This includes no chewing gum, candy or mints.( 10:00am) Take only the following medications with a SIP of water on the morning of surgery: ____None DO NOT STOP ANY OF YOUR OTHER PRESCRIPTION MEDICATIONS PRIOR TO SURGERY EXCEPT THE FOLLOWING Medications to discontinue per physician ___HOLD Plavix for [address] Valentino Date to take last dose 06/19/24 Hold all vitamins and supplements for 3 days prior per Anesthesia, Date to take last dose is 06/23/24. Please no make-up, nail swedish, hairspray, perfume, deodorant, or body powder the day of surgery.? No jewelry (including any body piercings) or valuables the day of surgery, leave them at home.? Please take a shower or bath the night before, or the morning of, surgery with an antibacterial soap.? Wear comfortable, loose fitting clothing.? - Jewelry must be removed prior to entering the operating room.? Rings and piercings that are not removed may be cut off. - The hospital will not accept responsibility for valuables.? - Please leave all valuables, including medications, at home the day of surgery. If you are going home after surgery, a licensed truck driver instructor must drive you home.? - NO public transportation without another adult if you receive anesthesia. - We recommend that an adult stay with you for 24 hours following discharge. - We also recommend that you do not drive, make important decision, drink alcoholic beverages, or take any drugs that were not prescribed by your health care provider for at least 24 hours after your discharge time. Follow any additional instructions given to you from your surgeon. Telephone instructions given to __patient and asked if any additional questions and then verbalized understanding. Patient advised to call surgeon office or pre surgery nurse liaison [phone] if any additional questions.
[2024-06-27] VITALS (8 sets, daily range): BP systolic 113–132; BP diastolic 65–83; PULSE 57–75; RESP 14–16; TEMP 36.1–36.7; O2SAT 99–100
[2024-06-27] MEDS: ACETAMINOPHEN 500 MG TABLET 1000 MG PO (10:06)
[2024-06-27] MEDS: KETOROLAC 15 MG/ML VIAL (*BKC) IV PUSH (10:07)
--- NOTE | 2024-06-27 11:44 | WPDHPUPDATE1 ---
History and Physical Update Update Date/Time: 06/27/24 11:44 History and Physical has been reviewed, including an updated exam of the patient. There are NO changes in the patient's condition. Risks, benefits, and alternatives have been discussed and questions answered. Patient agrees to proceed with procedure.
--- NOTE | 2024-06-27 11:52 | P.PNAN_ITS ---
Anes - Eval Final PreProcedure Day of Procedure 06/27/24 11:52 Patient weight: normal Heart: regular rate and rhythm Lungs: clear to auscultation Airway: Mallampati scale class II Neurological: alert and oriented Last oral intake: >/= 8 hours ASA classification: III Emergent: no Anesthetic plan: proceed Anesthesia type and monitoring: general LMA and standard monitoring Results Review: All pre-operative results and documents have been reviewed as part of the pre- operative evaluation. Informed Consent: The patient's anesthetic plan and its attendant risks and benefits were discussed with the patient/family/POA. Questions were solicited and answers provided to the satisfaction of the patient/family/POA.
--- NOTE | 2024-06-27 11:52 | P.PNAN_ITS ---
Anes - Initial Pre Proc Eval Procedure: Operation Date: 06/27/24 11:00 Proposed Procedures p Open Left Inguinal Hernia Repair with Mesh - Davin Valentino MD Date/Time: 06/27/24 11:52 Surgeon: Davin Valentino MD Pre Op Diagnosis: left inguinal hernia Patient Data Age: 73 Gender: M Height: 1.78 m Weight: 77.6 kg Last Vital Signs Temp 36.7 C 06/27/24 10:21 Pulse 72 06/27/24 10:21 Resp 16 06/27/24 10:21 BP 128/73 06/27/24 10:21 Pulse Ox 100 06/27/24 10:21 O2 Del Method Room Air 06/27/24 10:21 Allergies Allergy/AdvReac Type Severity Reaction Status Date / Time No Known Allergies Allergy Verified 06/27/24 10:07 Home Medications ?Medication ?Instructions ?Recorded ?Confirmed ?Type multivit with minerals-iron 18 1 tablet PO DAILY 04/10/20 06/27/24 History mg-folic ac 400 mcg-vit K 25 mcg tablet (Adults Multivitamin) lisinopril 10 mg tablet 10 mg PO DAILY #90 tabs 02/29/24 06/18/24 Rx psyllium husk 0.4 gram capsule 0.4 g PO DAILY PRN supplement 02/29/24 06/18/24 History (Metamucil) simvastatin 40 mg tablet 40 mg PO QPM #90 tabs 02/29/24 06/18/24 Rx clopidogrel 75 mg tablet 75 mg PO DAILY #90 tabs 04/30/24 06/27/24 Rx Patient hx anesthesia problems: none Family hx anesthesia problems: none Results Review: All pre-operative results and documents have been reviewed as part of the pre- operative evaluation. [facility]LY [facility] Past Medical History Medical History Elevated AST (SGOT) History of stroke (~2014) 2016 History of prostate cancer (~2009) Hyperlipemia HTN (hypertension) Stroke 2016 Surgical History Surgical History History of right inguinal hernia repair (~2003) 2004 Rupture quadriceps tendon (03/31/20) 03/2020 - s/p repair History of tonsillectomy (~1954) H/O prostatectomy (~2009) 2009 Family History Family History Mother Dementia Grandparent Dementia Carcinoma of colon Acute myocardial infarction Social History Social History Smoking status: Never smoker Second hand tobacco smoke exposure: No Alcohol intake: current Drinks per week: 1 Alcohol use details: 2-3 beers monthly. Substance use: never Substance use type: does not use Lack of Transportation: No Lack of Food: Never True Current Housing: I Have Housing Concerned About Future Housing: No Difficulty Paying Gas/Electric Bills: No Difficulty Paying for Meds: No Currently Unemployed: No Education: Bachelor's Degree Difficulty w/ Childcare or Family Care: No Living arrangements: with family Additional living arrangements comments: Occupation/Education: retired Gender identity (if verbalized by the patient): Male Spiritual care concerns: No Anes - Eval Final PreProcedure Day of Procedure 06/27/24 11:52 Patient weight: normal Heart: regular rate and rhythm Lungs: clear to auscultation Airway: Mallampati scale class II Neurological: alert and oriented Last oral intake: >/= 8 hours ASA classification: III Emergent: no Anesthetic plan: proceed Anesthesia type and monitoring: general LMA and standard monitoring Results Review: All pre-operative results and documents have been reviewed as part of the pre-operative evaluation. Informed Consent: The patient's anesthetic plan and its attendant risks and benefits were discussed with the patient/family/POA. Questions were solicited and answers provided to the satisfaction of the patient/family/POA.
[2024-06-27] MEDS: ceFAZolin 2 GM/D5W 50 ML 2 GM/50 ML BAG IVPB (11:54)
[2024-06-27] MEDS: LIDO 1%/EPINEPHRINE 1:100,000 50 ML VIAL 30 ML INFILTRATE (11:54)
[2024-06-27] MEDS: LACTATED RINGERS 1,000 ML 30 ML IV CONT ×2 (13:20)
--- NOTE | 2024-06-27 13:35 | P.OP_ITS ---
Procedure Note - Detailed Date of Procedure 06/27/24 Pre-op Diagnosis left inguinal hernia Post-op Diagnosis Same Procedure Performed Left inguinal hernia repair with mesh Surgeon Davin Valentino MD Screw Machine Operator [facility] Anesthesia General (LMA) and Local Indications Patient has noticed a left groin bulge for several months and this is occasionally painful especially with heavier activity and being on his feet. He was seen in the office and found to have a reducible left inguinal hernia. He has a history of robotic prostatectomy for prostate cancer. He is taken to surgery now for open left inguinal hernia repair with mesh. Findings Patient had an indirect left inguinal hernia Description of Procedure Patient was taken to surgery and general anesthesia per LMA was introduced. The left groin and genitalia were prepped and draped. The proposed incision was marked on the skin. Local anesthetic was in the traded into the skin and the deeper subcutaneous. Ilioinguinal nerve block was performed as well. Incision was made dissection was carried down through the subcutaneous and through Federica's fascia. The external oblique aponeurosis was encountered and then the dissection was continued until the external ring and much of the external oblique were exposed in the incision. Self-retaining retractors were placed. Local was infiltrated deep to the external oblique aponeurosis. The aponeurosis was opened laterally and extended medially through the external ring. Care was taken to avoid injury to the ilioinguinal nerve which was left attached to the cord throughout the surgery. We freed the leaves of the external oblique aponeurosis from the underlying inguinal canal contents. I then mobilized the cord medially on a Lucia drain. It was mobilized back to the internal ring with gentle dissection. Cautery was used for hemostasis. Blood loss was very minimal. I then dissected anteromedially in the cord and found the hernia sac. The sac was carefully dissected free from the spermatic cord and then dissected back to a high dissection. Care was taken not to injure the vas deferens were any of the cord vasculature. Once the sac was dissected adequately, it was dunked into the retroperitoneal cavity. A large PerFix plug light was then used to plug the defect. The plug was sutured to the transversalis fascia with interrupted 3-0 Vicryl suture. Three such suture were placed. I then carefully examined the cord in the inguinal canal floor. The PerFix Light patch was then cut to the appropriate length and was cut along its length so that the lateral leaves could pass beyond the cord. The patch was placed appropriately to cover the inguinal canal floor. We then placed the cord back in the inguinal canal and closed the external oblique aponeurosis over the cord with interrupted 3-0 Vicryl suture. Federica's fascia was closed with interrupted 3-0 Vicryl suture. 4-0 Vicryl subcuticular skin sutures were used to loosely approximate the skin. Finally a running 4-0 Monocryl skin stitch was used to close the skin. The wound was dressed with Exofin surgical adhesive. The patient was awakened and taken to recovery in good condition. Sponge and needle counts were correct x2. Implants Large PerFix Light plug and patch Estimated Blood Loss -5 Drains No Packing No Pathology None sent Complications None Condition Stable Disposition PACU [facility] Billing Surgery - Charge Forward: Surgery Billing (Open left inguinal hernia repair with mesh)
== END 2024-06-27 15:28 | disposition home or self-care (01) ==
PROVIDERS: PCP Family Medicine; Visit Provider Surgery
PROC: (CPT 49650; principal; 2024-06-27 11:00)
DX: K40.90 Unilateral inguinal hernia, without obstruction or gangrene, not specified as recurrent (principal); G89.18 Other acute postprocedural pain; I10 Essential (primary) hypertension; E78.5 Hyperlipidemia, unspecified; Z79.02 Long term (current) use of antithrombotics/antiplatelets; Z98.890 Other specified postprocedural states; Z85.46 Personal history of malignant neoplasm of prostate; Z86.79 Personal history of other diseases of the circulatory system; Z86.73 Personal history of transient ischemic attack (TIA), and cerebral infarction without residual deficits; Z80.0 Family history of malignant neoplasm of digestive organs; Z82.49 Family history of ischemic heart disease and other diseases of the circulatory system
CPT/HCPCS: 49650; A9270; C1781; J0690; J1100; J1171; J1885; J2003; J2004; J2405; J2704; J3010; J7120

== ENCOUNTER 2024-10-06 11:40 | Emergency (ER) | payer MEDICARE, OTHER, SELFPAY ==
[2024-10-06 12:08] VITALS: BP 129/78; PULSE 84; RESP 20; TEMP 37.7; O2SAT 99
[2024-10-06 12:31] LABS: EDCOVIDSCREEN Negative (Negative); EDINFLUASCREEN Negative (Negative); EDINFLUBSCREEN Negative (Negative)
--- NOTE | 2024-10-06 13:10 | ED.GENADULT ---
HPI - General Adult General Chief complaint: Upper Respiratory Infection Stated complaint: LOSING VOICE/COLD SYMPTOMS Time Seen by Provider: 10/06/24 13:10 Source: patient Mode of arrival: ambulatory Limitations: no limitations History of Present Illness HPI narrative: 74-year-old male patient presents to the [facility] with complaints of cold symptoms for the past 5-6 days. Patient states that he was works outside a lot and especially when there was a lot of dust and wind was blowing is when his symptoms started. Denies fevers body aches or chills. Denies chest pain or shortness of breath. Patient states he has had a cough and a lot of congestion and runny nose. Patient states he did not take anything for the 1st 3 days of symptoms but started taking a Claritin the last 2 days which has helped his symptoms but denies taking any Claritin today. Related Data Home Medications ?Medication ?Instructions ?Recorded ?Confirmed ?Last Taken ?Type multivit with minerals-iron 18 1 tablet PO DAILY 04/10/20 09/12/24 06/23/24 History mg-folic ac 400 mcg-vit K 25 mcg tablet (Adults Multivitamin) psyllium husk 0.4 gram capsule 0.4 g PO DAILY PRN supplement 02/29/24 09/12/24 Unknown History (Metamucil) cholecalciferol (vitamin D3) 75 150 mcg PO 5XW 09/12/24 09/12/24 Unknown History mcg (3,000 unit) tablet lisinopril 10 mg tablet 10 mg PO DAILY 09/12/24 09/12/24 Unknown History Allergies Allergy/AdvReac Type Severity Reaction Status Date / Time No Known Allergies Allergy Verified 10/06/24 12:13 Review of Systems Review of Systems: CONSTITUTIONAL: Denies fever, chills, or sweats. EYES: Denies visual changes, redness, or discharge. ENT: Positive rhinorrhea, congestion, sore throat, denies otalgia. CARDIOVASCULAR: Denies chest pain, palpitations, or edema. RESPIRATORY: positive cough denies dyspnea. GASTROINTESTINAL: Denies abdominal pain, nausea, vomiting, or diarrhea. GENITOURINARY: Denies dysuria or hematuria. SKIN: Denies rash or itching. MUSCULOSKELETAL: Denies back pain, joint pain, or myalgia. NEUROLOGIC: Denies headache, numbness, or weakness. PSYCHIATRIC: Denies anxiety or depression. [facility] Past Medical History Medical History Fatty liver Elevated AST (SGOT) History of stroke (~2014) 2016 History of prostate cancer (~2009) Hyperlipemia HTN (hypertension) Stroke 2016 Surgical History Surgical History H/O left inguinal hernia repair (~06/2024) 06/27/24 Left inguinal hernia repair with mesh Dr. Valentino History of right inguinal hernia repair (~2003) 2003 Rupture quadriceps tendon (03/31/20) 03/2020 - s/p repair History of tonsillectomy (~1954) H/O prostatectomy (~2009) 2009 Family History Family History Mother Dementia Grandparent Dementia Carcinoma of colon Acute myocardial infarction Social History Social History Smoking status: Never smoker Second hand tobacco smoke exposure: No Alcohol intake: current Drinks per week: 1 Alcohol use details: 2-3 beers monthly. Substance use: never Substance use type: does not use Lack of Transportation: No Lack of Food: Never True Current Housing: I Have Housing Concerned About Future Housing: No Difficulty Paying Gas/Electric Bills: No Difficulty Paying for Meds: No Currently Unemployed: No Education: Bachelor's Degree Difficulty w/ Childcare or Family Care: No Living arrangements: with family Additional living arrangements comments: Occupation/Education: retired Gender identity (if verbalized by the patient): Male Spiritual care concerns: No Comments At the time of my signature I agree with nursing past medical history, surgical, social, and family history. There is no relevant family history pertinent to the presenting complaint. Exam Narrative: GENERAL: Well-appearing, well-nourished, and in no acute distress. HEAD: Normocephalic, atraumatic. EYES: PERRLA and EOMI. ENT: Nares with erythema edema noted bilaterally, no rhinorrhea or epistaxis. Mucous membranes moist. posterior pharynx with no erythema, tonsillar enlargement, exudates or lesions present. There is some postnasal drip noted to the posterior pharynx. Bilateral TMs are clear no erythema or foreign bodies the canal. NECK: Supple. No lymphadenopathy CHEST: Clear to auscultation. No respiratory distress. HEART: Regular rate and rhythm. No murmur heard. Normal peripheral pulses. ABDOMEN: Soft, nontender, nondistended, normal active bowel sounds. EXTREMITIES: Normal range of motion. No edema. SKIN: Warm, dry, no rash. NEURO: No focal deficits. Alert and oriented x3. Course Course Level of Care: Express Care Visit Vital Signs Vital signs: Vital Signs Temperature 37.7 C H 10/06/24 12:08 Pulse Rate 84 10/06/24 12:08 Respiratory Rate 20 10/06/24 12:08 Blood Pressure 129/78 10/06/24 12:08 Pulse Oximetry 99 10/06/24 12:08 Temperature 37.7 C H 10/06/24 12:08 Pulse Rate 84 10/06/24 12:08 Respiratory Rate 20 10/06/24 12:08 Blood Pressure 129/78 10/06/24 12:08 Pulse Oximetry 99 10/06/24 12:08 Vital signs reviewed. Medical Decision Making MDM Narrative Medical decision making narrative: Discussed with patient that his influenza and COVID are both negative. Discussed with plan this is most likely allergies causing his symptoms and I would encourage him to continue taking the Claritin daily and may also do warm tea with honey or straight tsp honey should help with the coughing. Patient may also use [id number] medications for cold and flu symptoms. Patient verbalized understanding denies any other questions or concerns at this time. Differential Diagnosis Differential Diagnosis: Differential diagnosis: Allergic rhinitis, chronic sinusitis, tonsillitis, acute sinusitis, infectious mononucleosis, seasonal influenza, pertussis, diphtheria, meningococcal disease, viral syndrome, viral bronchitis, RSV, COVID-19 Vital Signs Vital Signs: Vital Signs Temperature 37.7 C H 10/06/24 12:08 Pulse Rate 84 10/06/24 12:08 Respiratory Rate 20 10/06/24 12:08 Blood Pressure 129/78 10/06/24 12:08 Pulse Oximetry 99 10/06/24 12:08 Temperature 37.7 C H 10/06/24 12:08 Pulse Rate 84 10/06/24 12:08 Respiratory Rate 20 10/06/24 12:08 Blood Pressure 129/78 10/06/24 12:08 Pulse Oximetry 99 10/06/24 12:08 Lab Data Labs: Lab Results 10/06/24 10/06/24 Range/Units 12:08 12:08 POC Influenza A Ag Negative (Negative) POC Influenza B Ag Negative (Negative) POC SARS CoV-2 Ag Negative Negative (Negative) Critical Care Time Critical Care Time Critical Care Time: No Discharge Plan Discharge Clinical Impression: Allergic rhinitis Patient Disposition: Home, Self-Care Condition: Stable Instructions: Antibiotic Form, Viral Syndrome (ED), Postnasal Drip (DC) Additional Instructions: Viral illness may last between 7-12days; antibiotic is NOT recommended at this time. Recommend antihistamine such as Benadryl at night time and Claritin/Zyrtec/Ana during the day may take [id number] honey or hot tea with honey to help with cough and sore throat. Use inhaler as needed for cough, wheezing, shortness of breath or chest tightness. Also, recommend symptomatic treatment includes: rest, fluids, and increase humidity of the air at home. Recommend Acetaminophen or nonsteroidal anti-inflammatory agents (NSAIDs) as directed in the bottle to reduce fever and/pain/headache. Avoid smoking/second-hand smoke. Limit visits to areas with large crowds. Please schedule a follow-up visit with your personal physician for further evaluation and treatment within 3-5days. Including recheck and discussion of your blood pressure. If your symptoms persist, change or worsen significantly before you can contact your personal physician then please, without delay, go to the emergency department for further evaluation. Patient Language: Argentine Prescriptions: No Action psyllium husk [Metamucil] 0.4 gram capsule 0.4 g PO DAILY PRN (Reason: supplement) simvastatin 40 mg tablet 40 mg PO QPM Qty: 90 2RF Rx Instructions: take 1 tablet by oral route every day in the evening lisinopril 10 mg tablet 10 mg PO DAILY cholecalciferol (vitamin D3) 75 mcg (3,000 unit) tablet 150 mcg PO 5XW Adults Multivitamin 18 mg iron-400 mcg-25 mcg Tablet 1 tablet PO DAILY clopidogrel 75 mg tablet 75 mg PO DAILY Qty: 90 1RF Rx Instructions: take 1 tablet by oral route every day Follow-up/Referrals: Destinee Garcias MD [Primary Care Provider] - Time of Disposition: 13:19
== END 2024-10-06 13:22 | disposition home or self-care (01) ==
PROVIDERS: Emergency Provider Nurse Practitioner Family; PCP Family Medicine
DX: J30.9 Allergic rhinitis, unspecified (principal); I10 Essential (primary) hypertension; E78.5 Hyperlipidemia, unspecified; Z85.46 Personal history of malignant neoplasm of prostate; K76.0 Fatty (change of) liver, not elsewhere classified; Z86.73 Personal history of transient ischemic attack (TIA), and cerebral infarction without residual deficits; Z20.822 Contact with and (suspected) exposure to COVID-19
CPT/HCPCS: 87426; 87804; 99212; G0463

== ENCOUNTER 2025-01-01 02:52 | Day surgery (SDC) | payer MEDICARE, OTHER, SELFPAY ==
[2024-12-19 15:11] VITALS: BMI 24.0
--- NOTE | 2024-12-19 15:44 | PC.NURSE ---
Spoke with _patient regarding medication _Plavix_. __Patient_verbalizes understanding that the last dose is to be taken on _12/24/2024__ and the Endoscopist will instruct them when to restart after the procedure.
--- OUTSIDE RECORDS SUMMARY | 2025-01-01 02:55 | XMS_ITS | Clinical Summary ---
Author Organization [facility] Address [address] [address] Phone Care Team Providers Care Distributor Publications Name Role Phone Lily Beard MD Primary Care Provi lilliam Social History Tobacco Use Types Packs/Day Years Used Date Smoking Tobacco: Never Assessed Sex and Gender Information Value Date Recorded Sex Assigned at Not on file Legal Sex Male 11:20 PM CDT Gender Identity Not on file Sexual Orientation Not on file Plan of Treatment Health Maintenance Due Date Last Done Comments Hepatitis C Virus (HCV) Screening 1950 TdaP Immunization 1950 Cologuard 2002 Immunochemical Fecal Occult Blood 2002 Pneumococcal Immunization (5 0+ years) (1 of 1 - PCV) 2002 Zoster Immunization (1 of 2) 2002 Influenza Immunization (#1) 2024 SARS-COV-2 Immunization ( - 2023-25 season) 2024 Colonoscopy 12/19/2024 12/20/2019, 01/11/2013 Colorectal Cancer Screening 12/19/2024 Respiratory Syncytial Virus (RSV) Immunization (Adult) (1 - 1-dose 75+ series) 2027 Hepatitis B Immunization Aged Out No longer eligible based on patient's age to complete this topic Meningococcal Immunization (ACWY) Aged Out No longer eligible b ased on patient's age to complete this topic Rotavirus Immunization Aged Out No lo nger eligible based on patient's age to complete this topic Procedures Procedure Name Priority Date/Time Associated Diagnosis Comments COLONOSCOPY Routine 12/20/2019 from Last 3 Months or Most Recently Relevant to Health Maintenance Results * COLONOSCOPY (12/20/2019) Tanner Burgess DO PROCEDURE/MINOR SURGICAL ORDERA BLES Final Result from Last 3 Months or Most Recently Relevant to Health Maintenance [place] [address] [place] [id number] MEDICARE [facility] on file Care Teams Distributor Publications Relationship Specialty Start Date End Date Lily Beard MD [address] [place] [address] PCP - General Family Medicine 09/03/19
--- OUTSIDE RECORDS SUMMARY | 2025-01-01 02:55 | XMS_ITS | Clinical Summary ---
Author Organization [facility] Address [address] [place] [address] Care Team Providers Care Belt Molder Name Role Phone Cali Anton MD Primary Care Provider [phone] Source Comments [facility],non-owned Affiliates and Associated Physician Practices is amultiple site organization consisting of ambulatory clinics and hospital sitesin [place], [place], [place] and [place]. This disclosure is being madepursuant to the Care Everywhere program and may not contain all information available regarding this patient. Last updated 18.[facility] [employer] Active Problems Problem Noted Date Diagnosed Date Elevated liver enzymes 03/02/2024 Social History Tobacco Use Types Packs/Day Years Used Date Smoking Tobacco: Never Assessed Sex and Gender Information Value Date Recorded Sex Assigned at Not on file Legal Sex Male 9:28 AM CDT Gender Identity Not on file Sexual Orientation Not on file Plan of Treatment Health Maintenance Due Date Last Done Comments COLOGUARD (AGES 45-75) - COL ON CA SCREENING 1950 COLON MONITORING 1952 COLONOSCOPY - COLON CA SCREENING 1952 CT COLONOGRAPHY - COLON CA SCREENING 1952 Colorectal Cancer Screening 1952 FIT - COLON CA SCREENING 1952 FLEX SIG - COLON CA SCREENING 1952 LIPID TESTING 1950 MEDICARE AWV 12 MONTHS 1952 HEPATITIS C SCREENING 08/29/1970 DTAP/TDAP/TD VACCINES (1 - Tdap) 1971 PNEUMOCOCCAL VACCINE 50+ (1 of 1 - PCV) 2002 ZOSTER VACCINE (1 of 2) 2002 COVID-19 VACCINE (1 - 2024-2 5 season) 2024 DEPRESSION SCREENING 07/18/2024 INFLUENZA VACCINE (Season Ended) 2025 Respiratory Syncytial Virus (RSV) Vaccine Pt: or over 60 yrs (1 - 1-dose 75+ series) 2027 HEPATITIS B VACCINE Aged Out No longe r eligible based on patient's age to complete this topic HIB VACCINE Aged Out No longer eligi ble based on patient's age to complete this topic HPV VACCINE Aged Out No longer eligi ble based on patient's age to complete this topic MENINGOCOCCAL (Group B) VACC INE SHARED DECISION-MAKING Aged Out No longer eligibl e based on patient's age to complete this topic MENINGOCOCCAL GROUPS A/C/Y/W VACCINE Aged Out No longer eligible b ased on patient's age to complete this topic [place] [address] MEDICARE [facility] [place] [address] Care Teams Belt Molder Relationship Specialty Start Date End Date Cali Anton MD [address] [place] [address] PCP - General 12/21/19
[2025-01-01 06:11] VITALS: BP 123/77; PULSE 63; RESP 18; TEMP 36.8; O2SAT 100; BMI 24.5
[2025-01-01] MEDS: LACTATED RINGERS 1,000 ML 150 ML IV CONT (06:33)
--- NOTE | 2025-01-01 07:17 | P.PNAN_ITS ---
Anes - Initial Pre Proc Eval Procedure: Operation Date: 01/01/25 07:30 Proposed Procedures p Colonoscopy - Roney Garber MD Date/Time: 01/01/25 07:17 Surgeon: Roney Garber MD Pre Op Diagnosis: Hx of colon polyps, Screening Patient Data Age: 74 Gender: M Height: 1.78 m Weight: 77.7 kg Last Vital Signs Temp 36.8 C 01/01/25 06:11 Pulse 63 01/01/25 06:11 Resp 18 01/01/25 06:11 BP 123/77 01/01/25 06:11 Pulse Ox 100 01/01/25 06:11 O2 Del Method Room Air 01/01/25 06:11 Allergies Allergy/AdvReac Type Severity Reaction Status Date / Time No Known Allergies Allergy Verified 01/01/25 06:18 Home Medications ?Medication ?Instructions ?Recorded ?Confirmed ?Type multivit with minerals-iron 18 1 tablet PO DAILY 04/10/20 01/01/25 History mg-folic ac 400 mcg-vit K 25 mcg tablet (Adults Multivitamin) psyllium husk 0.4 gram capsule 1.6 g PO BID supplement 02/29/24 01/01/25 History (Metamucil) simvastatin 40 mg tablet 40 mg PO QPM #90 tabs 02/29/24 01/01/25 Rx clopidogrel 75 mg tablet 75 mg PO DAILY #90 tabs 04/30/24 01/01/25 Rx cholecalciferol (vitamin D3) 75 75 mcg PO DAILY 09/12/24 01/01/25 History mcg (3,000 unit) tablet lisinopril 10 mg tablet 10 mg PO DAILY 09/12/24 01/01/25 History Patient hx anesthesia problems: none Family hx anesthesia problems: none Results Review: All pre-operative results and documents have been reviewed as part of the pre- operative evaluation. [facility] Past Medical History Medical History Fatty liver Elevated AST (SGOT) History of stroke (~2014) 2016 History of prostate cancer (~2009) Hyperlipemia HTN (hypertension) Stroke 2016 Surgical History Surgical History H/O left inguinal hernia repair (~06/2024) 06/27/24 Left inguinal hernia repair with mesh Dr. Valentino History of right inguinal hernia repair (~2003) 2004 Rupture quadriceps tendon (03/31/20) 03/2020 - s/p repair History of tonsillectomy (~1954) H/O prostatectomy (~2009) 2009 Family History Family History Mother Dementia Grandparent Dementia Carcinoma of colon Acute myocardial infarction Social History Social History Smoking status: Never smoker Second hand tobacco smoke exposure: No Alcohol intake: current Drinks per week: 1 Alcohol use details: 2-3 beers monthly. Substance use: never Substance use type: does not use Lack of Transportation: No Lack of Food: Never True Current Housing: I Have Housing Concerned About Future Housing: No Difficulty Paying Gas/Electric Bills: No Difficulty Paying for Meds: No Currently Unemployed: No Education: Bachelor's Degree Difficulty w/ Childcare or Family Care: No Living arrangements: with family Additional living arrangements comments: Occupation/Education: retired Gender identity (if verbalized by the patient): Male Spiritual care concerns: No Anes - Eval Final PreProcedure Day of Procedure 01/01/25 07:17 Patient weight: normal Heart: regular rate and rhythm Lungs: clear to auscultation Airway: Mallampati scale class II Neurological: alert and oriented Last oral intake: >/= 8 hours ASA classification: III Emergent: no Anesthetic plan: proceed Anesthesia type and monitoring: general GIVS and standard monitoring Results Review: All pre-operative results and documents have been reviewed as part of the pre- operative evaluation. Informed Consent: The patient's anesthetic plan and its attendant risks and benefits were discussed with the patient/family/POA. Questions were solicited and answers provided to the satisfaction of the patient/family/POA.
--- NOTE | 2025-01-01 07:26 | PM.IMHP ---
H&P: HPI History of Present Illness Date/Time: 01/01/25 07:26 Chief Complaint: History of colon polyps Narrative: The patient has a history of colonic polyps, the last colonoscopy was 5 years Review of Systems Review of Systems: All systems reviewed & are unremarkable except as noted in HPI and below PMFSH Past Medical History Medical History Fatty liver Elevated AST (SGOT) History of stroke (~2014) 2016 History of prostate cancer (~2009) Hyperlipemia HTN (hypertension) Stroke 2016 Surgical History Surgical History H/O left inguinal hernia repair (~06/2024) 06/27/24 Left inguinal hernia repair with mesh Dr. Valentino History of right inguinal hernia repair (~2003) 2003 Rupture quadriceps tendon (03/31/20) 03/2020 - s/p repair History of tonsillectomy (~1954) H/O prostatectomy (~2009) 2009 Family History Family History Mother Dementia Grandparent Dementia Carcinoma of colon Acute myocardial infarction Social History Social History Smoking status: Never smoker Second hand tobacco smoke exposure: No Alcohol intake: current Drinks per week: 1 Alcohol use details: 2-3 beers monthly. Substance use: never Substance use type: does not use Lack of Transportation: No Lack of Food: Never True Current Housing: I Have Housing Concerned About Future Housing: No Difficulty Paying Gas/Electric Bills: No Difficulty Paying for Meds: No Currently Unemployed: No Education: Bachelor's Degree Difficulty w/ Childcare or Family Care: No Living arrangements: with family Additional living arrangements comments: Occupation/Education: retired Gender identity (if verbalized by the patient): Male Spiritual care concerns: No Meds Home Medications and Allergies Home Medications ?Medication ?Instructions ?Recorded ?Confirmed ?Type multivit with minerals-iron 18 1 tablet PO DAILY 04/10/20 01/01/25 History mg-folic ac 400 mcg-vit K 25 mcg tablet (Adults Multivitamin) psyllium husk 0.4 gram capsule 1.6 g PO BID supplement 02/29/24 01/01/25 History (Metamucil) simvastatin 40 mg tablet 40 mg PO QPM #90 tabs 02/29/24 01/01/25 Rx clopidogrel 75 mg tablet 75 mg PO DAILY #90 tabs 04/30/24 01/01/25 Rx cholecalciferol (vitamin D3) 75 75 mcg PO DAILY 09/12/24 01/01/25 History mcg (3,000 unit) tablet lisinopril 10 mg tablet 10 mg PO DAILY 09/12/24 01/01/25 History Allergies Allergy/AdvReac Type Severity Reaction Status Date / Time No Known Allergies Allergy Verified 01/01/25 06:18 Vital Signs Vital Signs - 24 hr 01/01/25 06:11 Temperature 98.3 F Pulse Rate 63 Respiratory Rate 18 Blood Pressure 123/77 Pulse Oximetry 100 Oxygen Delivery Room Air Exam Const: General: cooperative and healthy appearing Resp: Effort & Inspection: normal respiratory effort and able to speak in complete sentences Auscultation: clear to auscultation bilaterally Cardio: Rate: regular rate Rhythm: regular rhythm GI: Inspection: normal to inspection GI Palp: No No hepatosplenomegaly present Auscultation: normal bowel sounds Rectal Exam: deferred Skin: General skin exam: normal color Psych: Appearance: grossly normal Mental Status: mental status grossly normal Assessment and Plan Assessment and plan (1) History of colonic polyps: Code(s): Z86.0100 - Personal history of colon polyps, unspecified Status: Acute Assessment and Plan: The patient is deemed a good candidate for the procedure. Consent signed. Will proceed.
[2025-01-01 07:42] VITALS: BP 109/68; PULSE 61; RESP 19; O2SAT 97
[2025-01-01 07:52] VITALS: BP 116/63; PULSE 53; RESP 13; O2SAT 100
--- NOTE | 2025-01-01 08:01 | SUR.PHASEII ---
Per Dr. Garber, patient to resume Plavix today. Educated patient on this. Patient verbalized understanding.
[2025-01-01 08:02] VITALS: BP 130/73; PULSE 60; RESP 22; O2SAT 100
== END 2025-01-01 08:15 | disposition home or self-care (01) ==
PROVIDERS: PCP Family Medicine; Referring Provider Family Medicine; Visit Provider Internal Medicine Gastroenterology
PROC: 0DJD8ZZ Inspection of Lower Intestinal Tract, Via Natural or Artificial Opening Endoscopic (ICD-10-PCS; CPT 45378; principal; 2025-01-01 07:30)
DX: Z12.11 Encounter for screening for malignant neoplasm of colon (principal); K64.8 Other hemorrhoids; K57.30 Diverticulosis of large intestine without perforation or abscess without bleeding; E78.5 Hyperlipidemia, unspecified; I10 Essential (primary) hypertension; Z79.02 Long term (current) use of antithrombotics/antiplatelets; Z98.890 Other specified postprocedural states; Z86.0100 Personal history of colon polyps, unspecified; Z85.46 Personal history of malignant neoplasm of prostate; Z86.73 Personal history of transient ischemic attack (TIA), and cerebral infarction without residual deficits; Z80.0 Family history of malignant neoplasm of digestive organs; Z82.49 Family history of ischemic heart disease and other diseases of the circulatory system
CPT/HCPCS: G0105; J2003; J2704; J7120

== ENCOUNTER 2025-02-28 08:00 | Outpatient (CLI) | payer MEDICARE, SELFPAY ==
--- OUTSIDE RECORDS SUMMARY | 2025-02-28 08:07 | XMS_ITS | Clinical Summary ---
Author Organization [facility] Address [address] [place] [address] Care Team Providers Care Railroad Hand Name Role Phone Cali Anton MD Primary Care Provider [phone] Source Comments [facility],non-owned Affiliates and Associated Physician Practices is amultiple site organization consisting of ambulatory clinics and hospital sitesin [place], [place], [place] and [place]. This disclosure is being madepursuant to the Care Everywhere program and may not contain all information available regarding this patient. Last updated 18.[facility] [employer] Active Problems Problem Noted Date Diagnosed Date [...] season) 2024 DEPRESSION SCREENING 07/18/2024 INFLUENZA VACCINE (#1) 2025 Respiratory Syncytial Virus (RSV) Vaccine Pt: [...] age to complete this topic Insurance MEDICARE MEDICARE [facility] [place] [address] Care Teams Railroad Hand Relationship Specialty Start Date End Date Cali Anton MD [address] [place] [address] PCP - General 12/21/19
--- OUTSIDE RECORDS SUMMARY | 2025-02-28 08:07 | XMS_ITS | Clinical Summary ---
Author Organization [facility] Address [address] [address] Phone Care Team Providers Care Surface Room Shop Optician Name Role Phone Lily Beard MD Primary [...] (HCV) Screening 1950 TdaP Immunization 1950 Cologuard 1997 Immunochemical Fecal Occult Blood 1997 Pneumococcal Immunization (5 0+ years) (1 of 1 - PCV) 2002 Zoster Immunization (1 of 2) 2002 SARS-COV-2 Immunization ( - season) 2024 Colonoscopy 12/19/2024 12/20/2019, 01/11/2013 Colorectal Cancer Screening 12/19/2024 Influenza Immunization (#1) 2025 Respiratory Syncytial Virus (RSV) Immunization (Adult) (1 - 1-dose 75+ series) 2027 Hepatitis B Immunization Aged Out No longer eligible based on patient's age to complete this topic Human Papillomavirus (HPV) Immunization Aged Out No longer eligible b ased [...] Most Recently Relevant to Health Maintenance Insurance MEDICARE [facility] on file Care Teams Surface Room Shop Optician Relationship Specialty Start Date End Date Lily Beard MD [address] [place] [address] PCP - General Family Medicine 09/03/19
[2025-02-28 11:23] LABS: Alanine Aminotransferase 26 U/L (6-50); Albumin Level 4.4 g/dL (3.5-5.1); Alkaline Phosphatase 59 U/L (38-126); Anion Gap 9 mmol/L (4-12); Aspartate Amino Transferase 78 U/L (17-59); Bilirubin,Total 0.7 mg/dL (0.2-1.3); Blood Urea Nitrogen 17 mg/dL (9-20); Calcium 9.4 mg/dL (8.4-10.2); Carbon Dioxide 28 mmol/L (22-30); Chloride 102 mmol/L (98-107); Estimated Glomerular Filt Rate > 60; Glucose 92 mg/dL (65-110); Potassium 4.7 mmol/L (3.4-5.0); Sodium 139 mmol/L (137-145); Total Protein 7.6 g/dL (6.3-8.2)
== END 2025-02-28 08:01 | disposition home or self-care (01) ==
LOC: ANHGOSHLAB 08:04
PROVIDERS: PCP Family Medicine; Visit Provider Family Medicine
DX: R74.01 Elevation of levels of liver transaminase levels (principal); K76.0 Fatty (change of) liver, not elsewhere classified; I10 Essential (primary) hypertension; E55.9 Vitamin D deficiency, unspecified
CPT/HCPCS: 36415; 80053; 82306

== ENCOUNTER 2025-03-11 08:21 | Outpatient (CLI) | payer MEDICARE, SELFPAY ==
--- NOTE | ~2025-03-11 | US_ITS ---
US abdomen limited INDICATION: Fatty infiltration of the liver. PROCEDURE: Realtime right upper abdominal ultrasound. COMPARISON: Ultrasound dated 08/20/2024 FINDINGS: The pancreas is normal without focal mass or pancreatic ductal dilation. Liver surface is nodular, compatible with cirrhosis. There is a liver cyst measuring 1.6 cm. There is normal directional flow in the portal vein. The gallbladder is normal without stones, gallbladder wall thickening or pericholecystic fluid. Common bile duct measures 4 mm. No sonographic Hernandez's sign. IMPRESSION: 1: Cirrhosis of the liver. Reviewed, dictated and finalized at location O. IMPRESSION: 1: Cirrhosis of the liver.
== END 2025-03-11 08:22 | disposition home or self-care (01) ==
LOC: GOSHIMG 08:23
PROVIDERS: PCP Family Medicine; Visit Provider Nurse Practitioner Family
DX: K76.0 Fatty (change of) liver, not elsewhere classified (principal); R74.01 Elevation of levels of liver transaminase levels; K74.60 Unspecified cirrhosis of liver
CPT/HCPCS: 76705

== ENCOUNTER 2025-03-14 08:57 | Outpatient (CLI) | payer MEDICARE, SELFPAY ==
--- OUTSIDE RECORDS SUMMARY | 2025-03-14 09:02 | XMS_ITS | Clinical Summary ---
Author Organization [facility] Address [address] [place] [address] Care Team Providers Care Residential Finish Carpenter Name Role Phone Cali Anton MD Primary Care Provider [phone] Source Comments [facility],non-owned Affiliates and Associated Physician Practices is amultiple site organization consisting of ambulatory clinics and hospital sitesin [place], [place], [place] and [place]. This disclosure is being madepursuant to the Care Everywhere program and may not contain all information available regarding this patient. Last updated 18.[facility] [employer] Active Problems Problem Noted Date Diagnosed Date [...] age to complete this topic [place] [address] MEDICARE [facility] [address] Care Teams Residential Finish Carpenter Relationship Specialty Start Date End Date Cali Anton MD [address] [place] [address] PCP - General 12/21/19
--- OUTSIDE RECORDS SUMMARY | 2025-03-14 09:02 | XMS_ITS | Clinical Summary ---
Author Organization [facility] Address [address] [address] Phone Care Team Providers Care Connie Cleaner Name Role Phone Lily Beard MD Primary [...] Recently Relevant to Health Maintenance Insurance MEDICARE [facility] on file Care Teams Connie Cleaner Relationship Specialty Start Date End Date Lily Beard MD [address] [place] [address] PCP - General Family Medicine 09/03/19
[2025-03-14 14:30] LABS: Hematocrit 46.0 % (42.0-52.0); Hemoglobin 15.2 g/dL (14.0-18.0); Mean Corpuscular HGB Conc 33.0 g/dl (32-36); Mean Corpuscular Hemoglobin 29.9 pg (26-34); Mean Corpuscular Volume 90.6 fl (80-100); Platelet Count Result 330 k/mm3 (150-375); Red Blood Count 5.08 M/mm3 (4.6-6.20); White Blood Count 8.3 K/mm3 (4.5-10.0)
[2025-03-14 14:42] LABS: INR 1.0; Prothrombin Time 13.8 Seconds (11.1-14.7)
[2025-03-14 14:48] LABS: Alanine Aminotransferase 28 U/L (6-50); Albumin Level 4.5 g/dL (3.5-5.1); Alkaline Phosphatase 54 U/L (38-126); Anion Gap 8 mmol/L (4-12); Aspartate Amino Transferase 137 U/L (17-59); Bilirubin,Total 0.7 mg/dL (0.2-1.3); Blood Urea Nitrogen 23 mg/dL (9-20); Calcium 9.6 mg/dL (8.4-10.2); Carbon Dioxide 28 mmol/L (22-30); Chloride 101 mmol/L (98-107); Estimated Glomerular Filt Rate > 60; Glucose 72 mg/dL (65-110); Potassium 4.5 mmol/L (3.4-5.0); Sodium 137 mmol/L (137-145); Total Protein 7.8 g/dL (6.3-8.2)
== END 2025-03-14 08:58 | disposition home or self-care (01) ==
LOC: ANHGOSHLAB 08:58
PROVIDERS: PCP Family Medicine; Visit Provider Nurse Practitioner Family
DX: K74.60 Unspecified cirrhosis of liver (principal)
CPT/HCPCS: 36415; 80053; 82105; 85027; 85610